=== PATIENT | female | born 1945 | race African-American/Black ===

== ENCOUNTER 2019-08-30 08:56 | Inpatient (IN) | payer MEDICARE, OTHER ==
[~2019-08-30] VITALS: Ht 162.6 cm; Wt 81.9 kg
[2019-08-30 09:09] VITALS: BP 140/82
--- NOTE | 2019-08-30 09:09 | NUR ---
ED Nurse Note: Pt from [facility] and brought in by ambulance due to fever and generalized weakness. Initial temp was 101.5 F and nursing staff gave 650 mg tylenol this morning. Fever went downt o 98.1 F per EMS. Pt is AAO x4, non ambulatroy with non labored breathing. Skin is very dry, intact and warm. No coughing upon arrival.
[2019-08-30] MEDS ORDERED: Acetaminophen 500mg (ES) tab ORAL ONE (09:15)
--- NOTE | 2019-08-30 09:23 | Emergency Room Report ---
History of Present Illness General Chief Complaint: Fever Source: Patient, Medical Record Present Illness HPI 74-year-old female history of dementia, stroke, presents with fever/chills x1 day patient with a positive COVID swab checked yesterday, patient denies any chest pain or shortness of breath she does endorse a cough, history is limited due to her dementia and confusion, no known aggravating or alleviating factor severity is moderate, constant patient presents for evaluation and treatment Allergies: Coded Allergies: DIPHENHYDRAMINE (Verified Allergy, Unknown, 08/30/19) COVID-19 Screening Contact w/high risk pt: Yes Experienced COVID-19 symptoms?: Yes COVID-19 Testing 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 COVID-19 Screening: Positive COVID-19 COVID-19 Testing Source: Unknown Patient History Past Medical History: see triage record Reviewed Nursing Documentation: PMH: Agreed; PSxH: Agreed Review of Systems All Other Systems: limited - Patient with dementia Physical Exam Vital Signs Date Time Temp Pulse Resp B/P (MAP) Pulse Ox O2 Delivery O2 Flow Rate FiO2 08/30/19 08:59 98.1 88 16 140/82 (101) 98 Room Air Sp02 EP Interpretation: reviewed, normal General Appearance: well appearing, no apparent distress, alert Head: normocephalic, atraumatic Eyes: bilateral eye PERRL, bilateral eye EOMI ENT: uvula midline, moist mucus membranes Neck: supple, thyroid normal, supple/symm/no masses Respiratory: lungs clear, no respiratory distress, no retraction, no accessory muscle use Cardiovascular #1: normal peripheral pulses, regular rate, rhythm, no edema, no gallop, no murmur Gastrointestinal: non tender, soft, no guarding, no rebound Musculoskeletal: normal inspection Neurologic: alert, responsive Psychiatric: mood/affect normal Skin: no rash, warm/dry Medical Decision Making Diagnostic Impression: Primary Impression: COVID-19 ER Course 74-year-old female presents with cough, positive COVID swab, patient will need to be isolated, patient will be admitted to isolate her from the other senior living patients Plan for admission and treatment supportive care Patient given fluids, Decadron for inflammation control Chest x-ray shows no obvious opacities, patient admitted to Dr. Jesus Boogie Laboratory Tests Test 08/30/19 09:30 White Blood Count 7.4 K/UL (4.8-10.8) Red Blood Count 5.25 M/UL (4.20-5.40) Hemoglobin 14.9 G/DL (12.0-16.0) Hematocrit 46.6 % (37.0-47.0) Mean Corpuscular Volume 89 FL (80-99) Mean Corpuscular Hemoglobin 28.5 PG (27.0-31.0) Mean Corpuscular Hemoglobin Concent 32.1 G/DL (32.0-36.0) Red Cell Distribution Width 13.8 % (11.6-14.8) Platelet Count 248 K/UL (150-450) Mean Platelet Volume 7.4 FL (6.5-10.1) Neutrophils (%) (Auto) 49.0 % (45.0-75.0) Lymphocytes (%) (Auto) 43.5 % (20.0-45.0) Monocytes (%) (Auto) 4.3 % (1.0-10.0) Eosinophils (%) (Auto) 1.9 % (0.0-3.0) Basophils (%) (Auto) 1.3 % (0.0-2.0) Urine Color Pale yellow Urine Appearance Clear Urine pH 7 (4.5-8.0) Urine Specific [place] 1.005 (1.005-1.035) Urine Protein Negative (NEGATIVE) Urine Glucose (UA) Negative (NEGATIVE) Urine Ketones Negative (NEGATIVE) Urine Blood 2+ (NEGATIVE) H Urine Nitrite Negative (NEGATIVE) Urine Bilirubin Negative (NEGATIVE) Urine Urobilinogen Normal MG/DL (0.0-1.0) Urine Leukocyte Esterase 1+ (NEGATIVE) H Urine RBC 2-4 /HPF (0 - 2) H Urine WBC 0-2 /HPF (0 - 2) Urine Squamous Epithelial Cells Few /LPF (NONE/OCC) Urine Bacteria Occasional /HPF (NONE) Sodium Level 142 MMOL/L (136-145) Potassium Level 4.2 MMOL/L (3.5-5.1) Chloride Level 106 MMOL/L (98-107) Carbon Dioxide Level 28 MMOL/L (21-32) Anion Gap 8 mmol/L (5-15) Blood Urea Nitrogen 13 mg/dL (7-18) Creatinine 0.9 MG/DL (0.55-1.30) Estimated Glomerular Filtration Rate > 60 mL/min (>60) Glucose Level 121 MG/DL (74-106) H Lactic Acid Level 1.80 mmol/L (0.4-2.0) Calcium Level 10.2 MG/DL (8.5-10.1) H Phosphorus Level 3.0 MG/DL (2.5-4.9) Magnesium Level 2.0 MG/DL (1.8-2.4) Total Bilirubin 0.4 MG/DL (0.2-1.0) Aspartate Amino Transferase (AST) 16 U/L (15-37) Alanine Aminotransferase (ALT) 23 U/L (12-78) Alkaline Phosphatase 58 U/L (46-116) Total Creatine Kinase 48 U/L (26-308) Creatine Kinase MB 0.6 NG/ML (0.0-3.6) Creatine Kinase MB Relative Index 1.2 Troponin I 0.000 ng/mL (0.000-0.056) Pro-B-Type Natriuretic Peptide 25 pg/mL (0-125) Total Protein 7.9 G/DL (6.4-8.2) Albumin 3.7 G/DL (3.4-5.0) Globulin 4.2 g/dL Albumin/Globulin Ratio 0.9 (1.0-2.7) L Lipase 152 U/L (73-393) EKG Diagnostic Results EKG Time: 09:24 EP Interpretation: NSR, rate 88, QTc 442, no acute ST elevations, left axis deviation Rhythm Strip Diag. Results Rhythm Strip Time: 10:06 EP Interpretation: yes Rate: 78 Rhythm: NSR, no PVC's, no ectopy Chest X-Ray Diagnostic Results Chest X-Ray Diagnostic Results : Chest X-Ray Ordered: Yes # of Views/Limited/Complete: 1 View Indication: Chest Pain EP Interpretation: Yes Interpretation: no consolidation, no effusion, no pneumothorax, no acute cardiopulmonary disease Impression: No acute disease Electronically Signed by: Ramón Saldaña MD Last Vital Signs Date Time Temp Pulse Resp B/P (MAP) Pulse Ox O2 Delivery O2 Flow Rate FiO2 08/30/19 08:59 98.1 88 16 140/82 (101) 98 Room Air Disposition: ADMITTED INPATIENT Condition: Stable Ramón Saldaña MD Aug 30, 2019 09:23
[2019-08-30] MEDS ORDERED: HUMULIN R100 UNIT/1 SUBQ (09:34)
[2019-08-30] MEDS ORDERED: BISACODYL5 MG RECTAL (09:34)
[2019-08-30] MEDS ORDERED: LEVEMIR100 UNIT/1 SUBQ (09:34)
[2019-08-30] MEDS ORDERED: NORVASC10 MG ORAL (09:34)
[2019-08-30] MEDS ORDERED: MILK OF MA400 MG/51 ORAL (09:34)
[2019-08-30] MEDS ORDERED: NORCO 5-325 TA1 EAC1 ORAL (09:34)
[2019-08-30] MEDS ORDERED: SENNA8.6 M2 PO (09:34)
[2019-08-30] MEDS ORDERED: FLEET ENEMA133 ML RECTAL (09:34)
[2019-08-30] MEDS ORDERED: MULTIVITAMINS1 EAC8 ORAL (09:34)
[2019-08-30] MEDS ORDERED: MOBIC7.5 MG ORAL (09:34)
[2019-08-30] MEDS ORDERED: ZYPREXA5 MG ORAL (09:34)
[2019-08-30] MEDS ORDERED: COLACE100 MG ORAL (09:34)
[2019-08-30] MEDS ORDERED: DEPAKOTE ER250 MG ORAL (09:34)
[2019-08-30] MEDS ORDERED: NEURONTIN100 MG ORAL (09:34)
[2019-08-30] MEDS ORDERED: PAIN RELIEF325 MG PO (09:34)
[2019-08-30] MEDS ORDERED: CEPACOL SORETH1 EACH ORAL (09:34)
--- NOTE | 2019-08-30 09:57 | NUR ---
ED Nurse Note: Collected blood and urine, MRA and VRE/CRE specimen sent.
[2019-08-30 10:06] LABS: APPEARANCE,URINE CLEAR; BILIRUBIN, URINE NEGATIVE (NEGATIVE); COLOR,URINE PALE YELLOW; GLUCOSE, URINE (UA) NEGATIVE (NEGATIVE); KETONES,URINE NEGATIVE (NEGATIVE); LEUKOCYTE ESTERASE ,URINE 1+ (NEGATIVE); NITRITE,URINE NEGATIVE (NEGATIVE); PH,URINE 7 (4.5-8.0); PROTEIN,URINE NEGATIVE (NEGATIVE); UROBILINOGEN,URINE NORMAL MG/DL (0.0-1.0)
[2019-08-30 10:07] LABS: BASOPHILS % (AUTO) 1.3 % (0.0-2.0); EOSINOPHILS % (AUTO) 1.9 % (0.0-3.0); HEMATOCRIT 46.6 % (37.0-47.0); HEMOGLOBIN 14.9 G/DL (12.0-16.0); LYMPHOCYTES % (AUTO) 43.5 % (20.0-45.0); MEAN CORPUSCULAR VOLUME 89 FL (80-99); MONOCYTES % (AUTO) 4.3 % (1.0-10.0); PLATELET COUNT 248 K/UL (150-450); RED BLOOD COUNT 5.25 M/UL (4.20-5.40); RED CELL DISTRIBUTION WIDTH 13.8 % (11.6-14.8); WHITE BLOOD COUNT 7.4 K/UL (4.8-10.8)
[2019-08-30 10:26] LABS: ANION GAP 8 mmol/L (5-15); BLOOD UREA NITROGEN 13 mg/dL (7-18); CALCIUM 10.2 MG/DL (8.5-10.1); CARBON DIOXIDE 28 MMOL/L (21-32); CHLORIDE 106 MMOL/L (98-107); CREATININE 0.9 MG/DL (0.55-1.30); POTASSIUM 4.2 MMOL/L (3.5-5.1); SODIUM 142 MMOL/L (136-145)
[2019-08-30 10:31] LABS: ALANINE AMINOTRANSFERASE 23 U/L (12-78); ALBUMIN 3.7 G/DL (3.4-5.0); ALBUMIN/GLOBULIN RATIO 0.9 (1.0-2.7); ALKALINE PHOSPHATASE 58 U/L (46-116); ASPARTATE AMINO TRANSFERASE 16 U/L (15-37); BILIRUBIN,TOTAL 0.4 MG/DL (0.2-1.0); CKMB 0.6 NG/ML (0.0-3.6); CREATINE KINASE 48 U/L (26-308)
[2019-08-30 11:17] VITALS: BP 102/59
--- NOTE | 2019-08-30 11:43 | NUR ---
ED Nurse Note: Reporty given to Tiago NUNEZ of Med Surg unit.
[2019-08-30 11:53] VITALS: BP 102/56
--- NOTE | 2019-08-30 12:15 | NUR ---
ED Nurse Note: Pt transported to med surg unit and trasnport 19 called. Pt has cover sheets and mask.Pt stable for transport.
--- NOTE | 2019-08-30 12:20 | NUR ---
NURSE NOTES: Admitted patient from ED. Patient is covid-19 positive from [facility]. pt is alert and awake. A&O 2-3, slightly confused, provided reality orientation. pt is verbally responsive. Respiration is even and unlabored on room air. pt denies any pain. Patient has no belongings at this time. Patient came with no home medications. Skin is clear and intact. pt has left sided weakness due to history of CVA. pt is a fall risk, bed alarm on, bed locked for fall precaution. pt has a history of seizures, side-rails padded. made pt comfortable in bed. meal ordered, placed call light within reach, will follow plan of care.
--- NOTE | 2019-08-30 12:25 | NUR ---
NURSE NOTES: Called Dr. Keagan MD said to call Dr. Shaffer for admission orders. Call placed to Dr. Shaffer, admission orders received, noted and carried out.
--- NOTE | 2019-08-30 12:37 | Diagnostic Imaging Report ---
Indication: Cough Technique: One view of the chest Comparison: none Findings: Lungs and pleural spaces are clear. Heart size is normal. Impression: No acute process
[2019-08-30] MEDS ORDERED: LORazepam 1mg tab ORAL PRN (14:00)
--- NOTE | 2019-08-30 15:30 | Consultation ---
DATE OF CONSULTATION: 08/30/2019 PULMONARY CONSULTATION CONSULTING PHYSICIAN: Markus Shaffer MD. HISTORY OF PRESENT ILLNESS: This is a 74-year-old female who was admitted to the hospital with positive COVID-19 swab. The patient presents with fever and chills. She has a history of CVA and dementia. The patient has just been tested and found to be positive for COVID-19. PAST MEDICAL HISTORY: Dementia and previous CVA. HOME MEDICATIONS: Reviewed and reconciled in the chart. PAST SURGICAL HISTORY: Surgeries none reported. REVIEW OF SYSTEMS: Unreliable. PHYSICAL EXAMINATION: GENERAL: Reveals an elderly female. VITAL SIGNS: O2 saturation is 98% on room air, blood pressure 140/80, heart rate 84, and respirations 18. She is afebrile. HEENT: Unremarkable. LUNGS: Decreased breath sounds bilaterally. CARDIOVASCULAR: Normal heart sounds. ABDOMEN: Soft. EXTREMITIES: There is no edema. LABORATORY DATA: Lab testing shows normal CBC and BMP with the lactic acid 1.8. Glucose 121. Urinalysis shows few pus cells. IMAGING STUDIES: Per report showed clear lung kelly bilaterally. IMPRESSION: 1. COVID-19 pneumonia. 2. Dementia. DISCUSSION: Admit to the hospital. Defer to ID regarding use of steroids. Currently, I do not suspect she needs remdesivir or Decadron. We will follow as needed. We will order oxygen and pulmonary hygiene. Markus Shaffer M.D. DR: SERA JOB#: [id number] CC:
--- NOTE | 2019-08-30 15:45 | History and Physical Report ---
DATE OF ADMISSION: 08/30/2019 TIME SEEN: 12 noon. CONSULTANTS: 1. Markus Shaffer MD. 2. Jovon Martin MD. 3. Matias Renee MD. CHIEF COMPLAINT: Fever, weakness, COVID infection. BRIEF HISTORY: This is a 74-year-old female from [facility], presented with fever for several days, came to [place], diagnosed with COVID infection, weakness, and fever. Admitted to medical floor for further treatment. Currently, calm in bed, in the ER [facility] awaiting admission. No complaint. REVIEW OF SYSTEMS: Not available. PAST MEDICAL HISTORY: Diabetes, polyneuropathy, encephalopathy, osteoarthritis, seizure, hemiplegia. PAST SURGICAL HISTORY: Unknown. MEDICATIONS: Include Tylenol, Decadron, sulfa. ALLERGIES: Diphenhydramine. SOCIAL HISTORY: Patient is slightly confused. Unable to obtain. OBJECTIVE: GENERAL: Sleeping in bed, not really responding to questions. Calm in bed. VITAL SIGNS: Temperature 98 degrees, pulse 78, respirations 15, blood pressure 102/56. HEENT: Normocephalic and atraumatic. NECK: Trachea midline. CARDIOVASCULAR: No peripheral edema. LUNGS: Breathing comfortably on room air. ABDOMEN: No apparent wounds. EXTREMITIES: No cyanosis or clubbing. NEUROLOGIC: Patient moves all extremities. LABORATORY DATA: Labs at this time show CBC is normal. BMP shows glucose 121, calcium 10.2. Troponin 0.00. Urinalysis shows 2+ blood, 1+ leukocyte esterase. ASSESSMENT: Fever, COVID infection, UTI, weakness, diabetes, polyneuropathy, encephalopathy, osteoarthritis, seizure, . PLAN: 1. O2, pulmonary treatment as needed. 2. Antibiotics per Infectious Disease. 3. Blood pressure, blood sugar, pain control. 4. Dietary followup. 5. PT, OT, dietary evaluation. 6. CBC, BMP in the morning. 7. Resume home medications. Jesus Boogie D.O. DR: KAREN JOB#: [id number] CC:
[2019-08-30 16:00] VITALS: BP 123/79
[2019-08-30] MEDS: NovoLOG Insulin Flexpen SUBQ SCH ×2 (16:30→21:10)
--- NOTE | 2019-08-30 18:00 | Consultation ---
DATE OF CONSULTATION: 08/30/2019 INFECTIOUS DISEASES CONSULTATION REFERRING PHYSICIAN: Jesus Boogie D.O. REASON FOR CONSULTATION: To rule out COVID-19 pneumonia. HISTORY OF PRESENTING ILLNESS: This is a 74-year-old lady with history of hypertension, diabetes, seizures, hemiplegia, who comes in with COVID-19 infection, fever, and infectious disease consultation has been obtained for antibiotics. PAST MEDICAL HISTORY: 1. Diabetes. 2. Hypertension. 3. Seizures. 4. Hemiplegia. 5. Polyneuropathy. 6. Osteoarthritis. MEDICATIONS: As an inpatient, she is on divalproex, subcu heparin, insulin, clonazepam, lorazepam. She received one dose of dexamethasone. ALLERGIES: TO BENADRYL NOTED. SOCIAL HISTORY: She used to smoke before. She does not smoke anymore. She used to drink before. She does not drink anymore. No history of drug use. FAMILY HISTORY: Noncontributory. REVIEW OF SYSTEMS: RESPIRATORY: She has fevers. No cough. No shortness of breath or chest pain. CARDIAC: No chest pain. No palpitation. No dizziness. No syncope. GASTROINTESTINAL: No nausea. No vomiting. No abdominal pain or diarrhea. PHYSICAL EXAMINATION: VITAL SIGNS: Temperature of 98.8, T-max of 98.8, pulse is 78, respiratory rate of 15, blood pressure of 102/56, O2 sat of 97% on room air. Examination deferred due to COVID-19. LABORATORY AND DIAGNOSTIC DATA: White count 7.4, hemoglobin 13.9, hematocrit 42.6, MCV 99, platelet count of 248. Sodium 142, potassium 4.2, chloride 106, bicarb 28, BUN 13, creatinine 0.9, glucose 121, calcium 8.2. Total bilirubin 0.4, AST 16, ALT 23, alkaline phosphatase 58, PT of 48, 0.6. Troponin 0.00. Beta-natriuretic peptide 25. Total protein 7.9, albumin 3.7. Lipase of 152. UA showing 0-2 white cells. Chest x-ray showed no acute process. ASSESSMENT: This is a 74-year-old lady with history of diabetes, hypertension, seizures, who comes in with fevers and is found to have: 1. Positive COVID-19 test. No sign of pneumonia currently. She is on room air with O2 saturation of 99%. 2. Diabetes. 3. Hypertension. 4. Seizures. PLAN: 1. Continue off antibiotics. 2. She did receive Decadron x1. 3. Continue isolation. 4. We will follow up the patient clinically. I would like to thank Dr. Jesus Boogie for this consultation. Jovon Martin M.D. DR: BOOGIE JOB#: [id number] CC: Jesus Boogie D.O.
--- NOTE | 2019-08-30 19:24 | NUR ---
HAND-OFF: Report given to Moshe.
--- NOTE | 2019-08-30 19:35 | NUR ---
NURSE NOTES: Received report from Tiago NUNEZ. The patient is alert and oriented x4 with some level of agitations and delusions also noted but she was re-oriented on his room and why she isin the hospital. She is room air with respiration even and unlabored and does not appear to be in any acute distress at this time. She has a RFA saline log that is patent and asymptomatic. Bed in low position, Bedsiderails padded and upx2, call light within easy reach and bedalarm . will continue to monitor progress
[2019-08-30 20:00] VITALS: BP 145/96
--- NOTE | 2019-08-30 20:45 | Consultation ---
DATE OF CONSULTATION: 08/30/2019 HISTORY OF PRESENT ILLNESS: This is a 74-year-old female patient. This patient is very confused and disorganized. She has got no logical thought process. This patient came in because she was apparently COVID positive, so she came into the ER, but she is very confused, disorganized. She has got altered mental status. She has got no logical plan for her own self-care. She came into the ER with a fever. She has got confusion and altered mental status. She because of her fever and her positive COVID testing was admitted to the hospital, but she does have a cough. She has got feelings of helplessness, hopelessness, low energy, poor appetite, loss of interest in activity. She is a very poor historian, so a lot of information had to be obtained through chart review. MEDICAL HISTORY: Significant for shortness of breath, cough, COVID positive. She also has diabetes and hypertension. ALLERGIES: Benadryl. PSYCHOTROPIC MEDICATIONS ON ADMISSION: She is on a psychotropic medication regimen consisting of . SOCIAL HISTORY: The patient lives at a facility. Financially supported by [employer] and Medicare. No known legal problems. FAMILY INTERACTIONS AND RELATIONSHIPS: Poor . FAMILY PSYCHIATRIC HISTORY: Denies. PAIN ASSESSMENT: 04/18 pain. DEVELOPMENTAL PROBLEMS: Denies. POSITIVE STRENGTHS: She is motivated to get better and she has place to live. WEAKNESSES: She is impulsive. Minimal support system. MENTAL STATUS EXAMINATION: This is a 74-year-old female. Appearance is disheveled. Attitude irritable and agitated. Affect guarded and restricted. Intellect poor because she does not know current events and does not know last 4 presidents. Mood depressed and anxious. Motor activity, psychomotor agitation. Attention span is poor because she cannot do serial 7's or spell world backwards. Orientation x2. She is oriented to person and place, not time or situation. Speech is nonsensical. Thought process, disorganized and illogical. Thought content, auditory hallucinations and paranoid delusions. Perception is poor because of perceptual disturbance such as auditory hallucinations and paranoid delusions. Abstract reasoning is poor. She does not understand proverbs and only has concrete thinking. Insight is poor because she does not recognize having psych disorder. Judgment is poor. She does not accept consequences for her actions. Short-term memory, 2 out of 3 recall with poor short-term memory. Long-term memory is poor because she does not remember long-term events in her life such as the high school that she went to. DIAGNOSES: 1. Major depressive disorder, severe, recurrent with psychotic features, rule out dementia with psychosis. 2. No secondary. 3. Medical, hypertension, diabetes, COVID-19. 4. Psychosocial stressors, financial. 5. Function impairment, severe. PLAN: Treat this patient with a medication regimen of Zyprexa 5 mg twice a day for psychosis, Depakote 250 mg twice a day as a mood stabilizer, Ativan 1 mg every 6 hours p.r.n. anxiety. 20 minutes of insight-oriented psychotherapy was provided to help motivate the patient to help her understand her psychiatric illness so that she has less depression, anxiety, and that she has more impulse control, and understand one of her physical problems. Chart reviewed. Discussed with staff. Thank you Dr. Jesus Boogie for this interesting consultation. Matias Renee M.D. DR: JAX JOB#: [id number] CC:
[2019-08-30] MEDS: Heparin 5000 units/ml inj SUBQ SCH (21:01)
[2019-08-30] MEDS: Levemir Flexpen SUBQ SCH (21:09)
[2019-08-31] VITALS: BP 131/101
[2019-08-31 04:00] VITALS: BP 135/86
--- NOTE | 2019-08-31 04:02 | NUR ---
NURSE NOTES: The patient exhibits continuous anxiety and inability to relaxed and was given her PRN Ativan as indicated well tolerated. She slept about 3 hrs the entire night with Resp even and unlabored with no coughing or fever noted. Will continue to Monitor.
[2019-08-31] MEDS: NovoLOG Insulin Flexpen SUBQ SCH ×4 (06:27→21:00)
[2019-08-31 06:31] LABS: ANION GAP 15 mmol/L (5-15); BLOOD UREA NITROGEN 16 mg/dL (7-18); CALCIUM 10.4 MG/DL (8.5-10.1); CARBON DIOXIDE 21 MMOL/L (21-32); CHLORIDE 103 MMOL/L (98-107); CREATININE 0.9 MG/DL (0.55-1.30); POTASSIUM 4.7 MMOL/L (3.5-5.1); SODIUM 138 MMOL/L (136-145)
--- NOTE | 2019-08-31 07:17 | NUR ---
HAND-OFF: Report given to Carlos NUNEZ.
--- NOTE | 2019-08-31 07:20 | NUR ---
NURSE NOTES: Received patient in bed. Awake A/O x3-4. Forgetful. IV in the Right forearm, site intact. Denies pain at this time. On room air, respirations unlabored. Bed low and locked, side rails up x2.
[2019-08-31 08:00] VITALS: BP 135/83
[2019-08-31] MEDS: Heparin 5000 units/ml inj SUBQ SCH ×2 (08:49→21:00)
[2019-08-31 09:02] LABS: BASOPHILS % (AUTO) 0.7 % (0.0-2.0); HEMATOCRIT 42.5 % (37.0-47.0); HEMOGLOBIN 14.2 G/DL (12.0-16.0); LYMPHOCYTES % (AUTO) 23.5 % (20.0-45.0); MEAN CORPUSCULAR VOLUME 88 FL (80-99); MONOCYTES % (AUTO) 3.7 % (1.0-10.0); NEUTROPHILS % (AUTO) 72.1 % (45.0-75.0); PLATELET COUNT 253 K/UL (150-450); RED BLOOD COUNT 4.82 M/UL (4.20-5.40); RED CELL DISTRIBUTION WIDTH 14.2 % (11.6-14.8); WHITE BLOOD COUNT 14.7 K/UL (4.8-10.8)
--- NOTE | 2019-08-31 10:04 | General Progress Note ---
Assessment/Plan Problem List: (1) UTI (urinary tract infection) ICD Codes: N39.0 - Urinary tract infection, site not specified SNOMED: 99831325 (2) Weak ICD Codes: R53.1 - Weakness SNOMED: 21459097 (3) Diabetes ICD Codes: E11.9 - Type 2 diabetes mellitus without complications SNOMED: 16766849 (4) Seizure ICD Codes: R56.9 - Unspecified convulsions SNOMED: 46940672 (5) Hemiplegia ICD Codes: G81.90 - Hemiplegia, unspecified affecting unspecified side SNOMED: 10045868 (6) Polyneuropathy in other diseases classified elsewhere ICD Codes: G63 - Polyneuropathy in diseases classified elsewhere SNOMED: 886917962 (7) COVID-19 ICD Codes: U07.1 - COVID-19 SNOMED: 539617854 Status: unchanged Assessment/Plan: pt dit abx pain control cbc bmp am Subjective Constitutional: Reports: weakness Allergies: Coded Allergies: DIPHENHYDRAMINE (Verified Allergy, Unknown, 08/30/19) All Systems: reviewed and negative except above Subjective sleepy calm Objective Last 24 Hour Vital Signs Date Time Temp Pulse Resp B/P (MAP) Pulse Ox O2 Delivery O2 Flow Rate FiO2 08/31/19 04:00 98.2 95 21 135/86 (102) 99 08/31/19 00:00 98.1 99 22 131/101 (111) 99 08/30/19 21:00 Room Air 08/30/19 20:00 97.0 108 24 145/96 (112) 100 08/30/19 16:00 98.1 93 18 123/79 (94) 96 08/30/19 13:06 Room Air 08/30/19 12:15 98.8 78 15 102/56 99 Room Air 08/30/19 11:53 98.8 78 15 102/56 99 Room Air 08/30/19 11:17 98.4 66 12 102/59 9 Room Air Intake and Output 08/30/19 08/31/19 19:00 07:00 Intake Total 240 ml 450 ml Output Total 450 ml Balance 240 ml 0 ml Intake Oral 240 ml 450 ml Output Urine Total 450 ml # Voids 1 Laboratory Tests 08/30/19 16:41: POC Whole Blood Glucose [Pending] 08/30/19 21:03: POC Whole Blood Glucose 150H 08/31/19 03:39: POC Whole Blood Glucose 109H 08/31/19 05:00: Sodium Level 138, Potassium Level 4.7, Chloride Level 103, Carbon Dioxide Level 21, Anion Gap 15, Blood Urea Nitrogen 16, Creatinine 0.9, Estimat Glomerular Filtration Rate > 60, Glucose Level 115H, Calcium Level 10.4H 08/31/19 08:50: White Blood Count 14.7#H, Red Blood Count 4.82, Hemoglobin 14.2, Hematocrit 42.5 , Mean Corpuscular Volume 88, Mean Corpuscular Hemoglobin 29.4, Mean Corpuscular Hemoglobin Concent 33.3, Red Cell Distribution Width 14.2, Platelet Count 253, Mean Platelet Volume 7.2, Neutrophils (%) (Auto) 72.1, Lymphocytes (% ) (Auto) 23.5, Monocytes (%) (Auto) 3.7, Eosinophils (%) (Auto) 0.0, Basophils ( %) (Auto) 0.7 Height (Feet): 5 Height (Inches): 4.00 Weight (Pounds): 180 General Appearance: lethargic EENT: normal ENT inspection Neck: normal alignment Cardiovascular: normal rate, regular rhythm Respiratory/Chest: no respiratory distress, no accessory muscle use Extremities: normal inspection Skin: normal pigmentation Jesus Boogie DO Aug 31, 2019 10:04
--- NOTE | 2019-08-31 10:29 | NUR ---
NURSE NOTES: Dr Martin informed of WBC 14.7. No new orders.
--- NOTE | 2019-08-31 11:05 | Infectious Diseases Prog Note ---
Assessment/Plan Assessment/Plan antibiotics : none A 1. r/o COVID 19 pneumonia on room air, O2 saturation 99 percent 2. leucocytosis likely secondary to steroids 3. diabetes mellitus 4. hypertension 5. seizures P 1. continue off antibiotics 2. continue isolation Subjective Constitutional: Denies: fever, chills Respiratory: Denies: shortness of breath, dry cough Gastrointestinal/Abdominal: Denies: nausea, vomiting, diarrhea Musculoskeletal: Reports: pain Allergies: Coded Allergies: DIPHENHYDRAMINE (Verified Allergy, Unknown, 08/30/19) Objective Last 24 Hour Vital Signs Date Time Temp Pulse Resp B/P (MAP) Pulse Ox O2 Delivery O2 Flow Rate FiO2 08/31/19 09:00 Room Air 08/31/19 08:00 97.9 94 20 135/83 (100) 99 08/31/19 04:00 98.2 95 21 135/86 (102) 99 08/31/19 00:00 98.1 99 22 131/101 (111) 99 08/30/19 21:00 Room Air 08/30/19 20:00 97.0 108 24 145/96 (112) 100 08/30/19 16:00 98.1 93 18 123/79 (94) 96 08/30/19 13:06 Room Air 08/30/19 12:15 98.8 78 15 102/56 99 Room Air 08/30/19 11:53 98.8 78 15 102/56 99 Room Air 08/30/19 11:17 98.4 66 12 102/59 9 Room Air Height (Feet): 5 Height (Inches): 4.00 Weight (Pounds): 180 Laboratory Tests Test 08/30/19 16:41 08/30/19 21:03 08/31/19 03:39 08/31/19 05:00 POC Whole Blood Glucose Pending 150 MG/DL (74-106) H 109 MG/DL (74-106) H Sodium Level 138 MMOL/L (136-145) Potassium Level 4.7 MMOL/L (3.5-5.1) Chloride Level 103 MMOL/L (98-107) Carbon Dioxide Level 21 MMOL/L (21-32) Anion Gap 15 mmol/L (5-15) Blood Urea Nitrogen 16 mg/dL (7-18) Creatinine 0.9 MG/DL (0.55-1.30) Estimat Glomerular Filtration Rate > 60 mL/min (>60) Glucose Level 115 MG/DL (74-106) H Calcium Level 10.4 MG/DL (8.5-10.1) H Test 08/31/19 08:50 White Blood Count 14.7 K/UL (4.8-10.8) #H Red Blood Count 4.82 M/UL (4.20-5.40) Hemoglobin 14.2 G/DL (12.0-16.0) Hematocrit 42.5 % (37.0-47.0) Mean Corpuscular Volume 88 FL (80-99) Mean Corpuscular Hemoglobin 29.4 PG (27.0-31.0) Mean Corpuscular Hemoglobin Concent 33.3 G/DL (32.0-36.0) Red Cell Distribution Width 14.2 % (11.6-14.8) Platelet Count 253 K/UL (150-450) Mean Platelet Volume 7.2 FL (6.5-10.1) Neutrophils (%) (Auto) 72.1 % (45.0-75.0) Lymphocytes (%) (Auto) 23.5 % (20.0-45.0) Monocytes (%) (Auto) 3.7 % (1.0-10.0) Eosinophils (%) (Auto) 0.0 % (0.0-3.0) Basophils (%) (Auto) 0.7 % (0.0-2.0) Current Medications Medications (Trade) Dose Ordered Sig/Lizz Route PRN Reason Start Time Stop Time Status Last Admin Dose Admin Dextrose (Dextrose 50%) 25 ml Q30M PRN IV Hypoglycemia 08/30/19 14:00 11/28/19 13:59 Dextrose (Dextrose 50%) 50 ml Q30M PRN IV Hypoglycemia 08/30/19 14:00 11/28/19 13:59 Divalproex Sodium (Depakote) 250 mg EVERY 12 HOURS ORAL 08/30/19 21:00 09/29/19 20:59 08/31/19 08:42 Heparin Sodium (Porcine) (Heparin 5000 units/ml) 5,000 units EVERY 12 HOURS SUBQ 08/30/19 21:00 10/14/19 20:59 08/31/19 08:49 Insulin Aspart (NovoLOG) BEFORE MEALS AND HS SUBQ 08/30/19 16:30 11/28/19 16:29 08/30/19 21:10 Insulin Detemir (Levemir) 25 units BEDTIME SUBQ 08/30/19 21:00 11/28/19 20:59 08/30/19 21:09 Lorazepam (Ativan) 1 mg Q6H PRN ORAL For Anxiety 08/30/19 14:00 09/06/19 13:59 08/30/19 20:54 Olanzapine (ZyPREXA) 5 mg BID ORAL 08/30/19 18:00 10/14/19 17:59 08/31/19 08:42 Jovon Martin MD Aug 31, 2019 11:05
--- NOTE | 2019-08-31 11:11 | NUR ---
P.T Note: P.T evaluation completed and tx initiated. Please refer to P.T evaluation for current functional status.
--- NOTE | 2019-08-31 11:32 | NUR ---
P.T Note: P.T evaluation completed and tx initiated. Please refer to P.T evaluation for current functional status. Addendum: 08/31/19 at 1135 by ROCKY NDIAYE PT Amended: Links added.
--- NOTE | 2019-08-31 13:12 | NUR ---
RD ASSESSMENT & RECOMMENDATIONS SEE CARE ACTIVITY FOR COMPLETE ASSESSMENT DAILY ESTIMATED NEEDS: Needs based on Pulmonary, DM, obese 61.4kg 25-30 kcals/kg 7935-0193 total kcals 1-1.5 g protein/kg 61-92 g total protein 25-30 mL/kg 3929-7190 total fluid mLs NUTRITION DIAGNOSIS: Swallowing difficulty r/t dysphagia as evidenced by pt on ms chopped diet, variable po intake, h/o CVA. CURRENT DIET: CCHO MED/ NA ms chopped PO DIET RECOMMENDATIONS: CCHO MED / liberalized / EUGENE diet, texture per FACILITIES COORDINATOR ADDITIONAL RECOMMENDATIONS: 1) With <75% intake, add Glucerna BID to meals 2) Obtain a accurate CBW, recalibrate bed scale 3) Hold ativan at meal times. 4) Check lytes, replete as needed
--- NOTE | 2019-08-31 15:04 | NUR ---
*-*DISCHARGE PLANNING*- PATIENT HAS BEEN REFERRED TO: [facility] P: [phone]
--- NOTE | 2019-08-31 15:14 | NUR ---
Discharge planning: Patient does not meet criteria for interqual admission at this time CM ask primary for discharge Insurance wanting to transfer into network
--- NOTE | 2019-08-31 15:30 | Progress Note ---
DATE: 08/31/2019 SUBJECTIVE: This is a 74-year-old female patient. She has some confusion, some disorganized thought process, and some decline in cognition below her baseline. She is in the hospital with COVID-19 infection, but she does have confusion, some altered mental status, and disorganized thought process, decline in cognition below her baseline. That is why, her attending has requested daily psychiatric consultation at this time. MENTAL STATUS EXAMINATION: This is a 74-year-old female patient. Her appearance is disheveled. Attitude, irritable and agitated. Affect, guarded and restricted. Intellect, poor. Mood, depressed and anxious. Motor activity, psychomotor agitation. Attention span is poor. Orientation x2. Speech is low volume, slurred. Thought process, disorganized and illogical. Thought content, auditory hallucinations and paranoid delusions. Insight and judgment is poor. DIAGNOSIS: Paranoid schizophrenia, acute exacerbation. PLAN: We will continue treatment with medications to help stabilize her mood and prevent further decline in cognition. The patient will continue to be followed throughout hospital course. Twenty minutes of cognitive behavioral therapy will help identify her automatic negative thoughts and help her convert those negative thoughts to more positive thoughts to reduce depression, anxiety, and mood lability. Chart reviewed. Discussed with staff. Seen and assessed in her room. Matias Renee M.D. DR: TYLER JOB#: [id number] CC:
--- NOTE | 2019-08-31 16:15 | NUR ---
CASE MANAGEMENT:REVIEW 74 YR OLD FEMALE BIBA FROM [facility] CC;FEVER SI;COVID-19 98.8 88 20 140/82 98% ON RA CA 10.2 CXR ~ NO ACUTE PROCESS UA+ PROTEIN, LEUKOCYTE ESTERASE, RBC IS;ACETAMINOPHEN PO ONCE DECADRON PO ONCE ADMITTED TO MED SURG MED SURG STATUS DCP;FROM [facility]
[2019-08-31 16:20] VITALS: BP 102/64
--- NOTE | 2019-08-31 16:39 | NUR ---
*-*DISCHARGER PLANNED*-* PATIENT HAS BEEN ACCEPTED AND WILL BE DIS[facility]GED TO[facility] P: [phone] FOR NURSE TO NURSE REPORT ROOM# 106.[facility] TRANSPORTATION SET FOR 6:30PM ANTONIO [id number] PLACED A CALL TO PATIENTS DAUGHTER PEDRO FLORES, NO ANSWER, LEFT VOICE MESSAGE IN RE-GUARDS TO DISCHARGE PLAN.
--- NOTE | 2019-08-31 17:45 | NUR ---
NURSE NOTES: Dr. Boogie contacted for discharge meds. Doctor did not give d/c order and states he will see patient tomorrow morning to see if stable for d/c. Doctor asked if he wants to cancel discharge. Awaiting response.
--- NOTE | 2019-08-31 18:00 | NUR ---
NURSE NOTES: Dr. Boogie office called for discharge order update. Message left. CN aware.
--- NOTE | 2019-08-31 18:12 | NUR ---
NURSE NOTES: Report given to Jan NUNEZ from [facility].
--- NOTE | 2019-08-31 18:13 | NUR ---
NURSE NOTES: Contact on file (Gabino Zepeda) called to notify of transfer. No answer, left message.
--- NOTE | 2019-08-31 18:34 | Pulmonology Progress Note ---
Subjective Interval Events: None new HEENT: Repors: no symptoms Respiratory: Reports: no symptoms Cardiovascular: Reports: no symptoms Gastrointestinal/Abdominal: Reports: no symptoms Musculoskeletal: Reports: pain Allergies: Coded Allergies: DIPHENHYDRAMINE (Verified Allergy, Unknown, 08/30/19) All Systems: reviewed and negative except above Objective Last 24 Hour Vital Signs Date Time Temp Pulse Resp B/P (MAP) Pulse Ox O2 Delivery O2 Flow Rate FiO2 08/31/19 16:20 98.4 94 20 102/64 (77) 99 08/31/19 09:00 Room Air 08/31/19 08:00 97.9 94 20 135/83 (100) 99 08/31/19 04:00 98.2 95 21 135/86 (102) 99 08/31/19 00:00 98.1 99 22 131/101 (111) 99 08/30/19 21:00 Room Air 08/30/19 20:00 97.0 108 24 145/96 (112) 100 Intake and Output 08/30/19 08/31/19 19:00 07:00 Intake Total 240 ml 450 ml Output Total 450 ml Balance 240 ml 0 ml Intake Oral 240 ml 450 ml Output Urine Total 450 ml # Voids 1 General Appearance: no acute distress HEENT: normocephalic Respiratory: chest wall non-tender, lungs clear Cardiovascular: normal peripheral pulses Abdomen: normal bowel sounds Laboratory Tests 08/30/19 21:03: POC Whole Blood Glucose 150H 08/31/19 03:39: POC Whole Blood Glucose 109H 08/31/19 05:00: Sodium Level 138, Potassium Level 4.7, Chloride Level 103, Carbon Dioxide Level 21, Anion Gap 15, Blood Urea Nitrogen 16, Creatinine 0.9, Estimat Glomerular Filtration Rate > 60, Glucose Level 115H, Calcium Level 10.4H 08/31/19 08:50: White Blood Count 14.7#H, Red Blood Count 4.82, Hemoglobin 14.2, Hematocrit 42.5 , Mean Corpuscular Volume 88, Mean Corpuscular Hemoglobin 29.4, Mean Corpuscular Hemoglobin Concent 33.3, Red Cell Distribution Width 14.2, Platelet Count 253, Mean Platelet Volume 7.2, Neutrophils (%) (Auto) 72.1, Lymphocytes (% ) (Auto) 23.5, Monocytes (%) (Auto) 3.7, Eosinophils (%) (Auto) 0.0, Basophils ( %) (Auto) 0.7 08/31/19 11:52: POC Whole Blood Glucose 102 Current Medications Medications (Trade) Dose Ordered Sig/Lizz Route PRN Reason Start Time Stop Time Status Last Admin Dose Admin Dextrose (Dextrose 50%) 25 ml Q30M PRN IV Hypoglycemia 08/30/19 14:00 11/28/19 13:59 Dextrose (Dextrose 50%) 50 ml Q30M PRN IV Hypoglycemia 08/30/19 14:00 11/28/19 13:59 Divalproex Sodium (Depakote) 250 mg EVERY 12 HOURS ORAL 08/30/19 21:00 09/29/19 20:59 08/31/19 08:42 Heparin Sodium (Porcine) (Heparin 5000 units/ml) 5,000 units EVERY 12 HOURS SUBQ 08/30/19 21:00 10/14/19 20:59 08/31/19 08:49 Insulin Aspart (NovoLOG) BEFORE MEALS AND HS SUBQ 08/30/19 16:30 11/28/19 16:29 08/30/19 21:10 Insulin Detemir (Levemir) 25 units BEDTIME SUBQ 08/30/19 21:00 11/28/19 20:59 08/30/19 21:09 Lorazepam (Ativan) 1 mg Q6H PRN ORAL For Anxiety 08/30/19 14:00 09/06/19 13:59 08/30/19 20:54 Olanzapine (ZyPREXA) 5 mg BID ORAL 08/30/19 18:00 10/14/19 17:59 08/31/19 18:33 Assessment/Plan Assessment/Plan IMPRESSION: 1. COVID-19 pneumonia. 2. Dementia. DISCUSSION: Admit to the hospital. Defer to ID regarding use of steroids. Currently, I do not suspect she needs remdesivir or Decadron. I will follow as needed. I will order oxygen prn and pulmonary hygiene. Shanna Martin Omar Syed MD Aug 31, 2019 18:34
--- NOTE | 2019-08-31 18:40 | NUR ---
NURSE NOTES: Dr Boogie office called regarding discharge order. Message left with statistical secretary.
--- NOTE | 2019-08-31 19:02 | NUR ---
NURSE NOTES: Dr. Shaffer office contacted regarding d/c order. Message left.
--- NOTE | 2019-08-31 19:09 | NUR ---
NURSE NOTES: Dr. Shaffer gave order to cancel discharge for today. Order carried out.
--- NOTE | 2019-08-31 19:25 | NUR ---
NURSE NOTES: RECEIVED PATIENT FROM ENRIQUE FROST. PATIENT IS AWAKE, ALERT, AAOX4, ON ROOM AIR, NO ACUTE DISTRESS NOTED. PIV ON RIGHT FA INTACT AND PATENT. SKIN IS INTACT. BED IS LOCKED AND LOW, BED ALARMS ACTVE, SIDE RAILS UP X2 AND PADDED, CALL LIGHT IS WITHIN REACH. WILL CONTINUE TO MONITOR.
--- NOTE | 2019-08-31 19:42 | NUR ---
HAND-OFF: Report given to Mila RN.
[2019-08-31 20:00] VITALS: BP 120/61
[2019-08-31] MEDS: Levemir Flexpen SUBQ SCH (21:00)
[2019-09-01] VITALS: BP 121/75
[2019-09-01 04:00] VITALS: BP 127/67
[2019-09-01] MEDS: NovoLOG Insulin Flexpen SUBQ SCH (05:59)
--- NOTE | 2019-09-01 07:34 | NUR ---
HAND-OFF: Report given to ENRIQUE Whipple. Patient is in stable condition. Endorsed POC.
--- NOTE | 2019-09-01 07:46 | NUR ---
NURSE NOTES: Received report from Mila, RN. Pt sleeping comfortably in bed. No s/s of acute distress. Currently on room air. SL on right FA, patent and intact. Pt refused labs this morning. Bed in low position, side rails up x3 and call light within reach. Will continue to monitor.
[2019-09-01 08:00] VITALS: BP 131/69
--- NOTE | 2019-09-01 08:03 | General Progress Note ---
Assessment/Plan Problem List: (1) UTI (urinary tract infection) ICD Codes: N39.0 - Urinary tract infection, site not specified SNOMED: 67842369 (2) Weak ICD Codes: R53.1 - Weakness SNOMED: 34707523 (3) Diabetes ICD Codes: E11.9 - Type 2 diabetes mellitus without complications SNOMED: 94732873 (4) Seizure ICD Codes: R56.9 - Unspecified convulsions SNOMED: 74047459 (5) Hemiplegia ICD Codes: G81.90 - Hemiplegia, unspecified affecting unspecified side SNOMED: 52023424 (6) Polyneuropathy in other diseases classified elsewhere ICD Codes: G63 - Polyneuropathy in diseases classified elsewhere SNOMED: 483752813 (7) COVID-19 ICD Codes: U07.1 - COVID-19 SNOMED: 642854767 Status: unchanged Assessment/Plan: pt dit abx pain control cbc bmp am dc plan Subjective Constitutional: Reports: weakness Allergies: Coded Allergies: DIPHENHYDRAMINE (Verified Allergy, Unknown, 08/30/19) All Systems: reviewed and negative except above Subjective sleepy calm Objective Last 24 Hour Vital Signs Date Time Temp Pulse Resp B/P (MAP) Pulse Ox O2 Delivery O2 Flow Rate FiO2 09/01/19 04:00 97.5 68 18 127/67 (87) 98 09/01/19 00:00 97.5 70 18 121/75 (90) 97 08/31/19 21:00 Room Air 08/31/19 20:00 98.1 95 19 120/61 (80) 97 08/31/19 16:20 98.4 94 20 102/64 (77) 99 08/31/19 09:00 Room Air Intake and Output 08/31/19 09/01/19 19:00 07:00 Intake Total 720 ml Output Total 1500 ml Balance -780 ml Intake Oral 720 ml Output Urine Total 1500 ml # Voids 2 Laboratory Tests 08/31/19 08:50: White Blood Count 14.7#H, Red Blood Count 4.82, Hemoglobin 14.2, Hematocrit 42.5 , Mean Corpuscular Volume 88, Mean Corpuscular Hemoglobin 29.4, Mean Corpuscular Hemoglobin Concent 33.3, Red Cell Distribution Width 14.2, Platelet Count 253, Mean Platelet Volume 7.2, Neutrophils (%) (Auto) 72.1, Lymphocytes (% ) (Auto) 23.5, Monocytes (%) (Auto) 3.7, Eosinophils (%) (Auto) 0.0, Basophils ( %) (Auto) 0.7 08/31/19 11:52: POC Whole Blood Glucose 102 08/31/19 22:17: POC Whole Blood Glucose [Pending] 09/01/19 05:53: POC Whole Blood Glucose 71L Height (Feet): 5 Height (Inches): 4.00 Weight (Pounds): 180 General Appearance: lethargic EENT: normal ENT inspection Neck: normal alignment Cardiovascular: normal rate, regular rhythm Respiratory/Chest: no respiratory distress, no accessory muscle use Extremities: normal inspection Skin: normal pigmentation Jesus Boogie DO Sep 01, 2019 08:03
[2019-09-01] MEDS: Heparin 5000 units/ml inj SUBQ SCH (08:38)
[2019-09-01 09:27] LABS: BASOPHILS % (AUTO) 1.5 % (0.0-2.0); EOSINOPHILS % (AUTO) 0.3 % (0.0-3.0); HEMOGLOBIN 13.9 G/DL (12.0-16.0); LYMPHOCYTES % (AUTO) 34.5 % (20.0-45.0); MEAN CORPUSCULAR VOLUME 87 FL (80-99); MONOCYTES % (AUTO) 5.6 % (1.0-10.0); NEUTROPHILS % (AUTO) 58.1 % (45.0-75.0); PLATELET COUNT 233 K/UL (150-450); RED BLOOD COUNT 4.84 M/UL (4.20-5.40); RED CELL DISTRIBUTION WIDTH 13.4 % (11.6-14.8); WHITE BLOOD COUNT 13.8 K/UL (4.8-10.8)
[2019-09-01 09:40] LABS: ANION GAP 8 mmol/L (5-15); BLOOD UREA NITROGEN 14 mg/dL (7-18); CALCIUM 9.6 MG/DL (8.5-10.1); CARBON DIOXIDE 25 MMOL/L (21-32); CHLORIDE 106 MMOL/L (98-107); CREATININE 0.8 MG/DL (0.55-1.30); SODIUM 139 MMOL/L (136-145)
--- NOTE | 2019-09-01 09:45 | NUR ---
Discharge Barriers:08/31/19 late entry CM notified Dr Boogie and Dr Shaffer patient does not meet criteria for interqual @1428 Dr Shaffer gave CM to discharge if no fever by 4pm CM entered order D/T no fever Patient came from facility covid + Patient to return to sister facility [facility] per Anton Austin D/T covid + Both MD's canceled order to @4pm discharge to transfer to [facility]
--- NOTE | 2019-09-01 10:30 | NUR ---
NURSE NOTES: Called [facility] and gave report to ENRIQUE Desir. Pt will be transferred via ambulance.
--- NOTE | 2019-09-01 10:31 | NUR ---
NURSE NOTES: Dr Boogie asked pt to be cleared by ID doctor. Dr. Martin was in the nurses station and cleared the pt for discharged. She states pt had medication decadron which raises WBC. Informed Dr. Boogie.
--- NOTE | 2019-09-01 11:35 | NUR ---
NURSE NOTES: Pt picked up by [facility] for transfer to [facility]. Pt stable, with no s/s of distress. Removed SL from right FA.
--- NOTE | 2019-09-01 11:41 | Infectious Diseases Prog Note ---
Assessment/Plan Assessment/Plan antibiotics : none A 1. r/o COVID 19 pneumonia on room air, O2 saturation 98 percent 2. leucocytosis likely secondary to steroids 3. diabetes mellitus 4. hypertension 5. seizures P 1. continue off antibiotics 2. continue isolation 3. d.c planned Subjective Constitutional: Denies: fever, chills Respiratory: Denies: shortness of breath, dry cough Gastrointestinal/Abdominal: Denies: nausea, vomiting, diarrhea Musculoskeletal: Reports: pain Allergies: Coded Allergies: DIPHENHYDRAMINE (Verified Allergy, Unknown, 08/30/19) Objective Last 24 Hour Vital Signs Date Time Temp Pulse Resp B/P (MAP) Pulse Ox O2 Delivery O2 Flow Rate FiO2 09/01/19 09:00 Room Air 09/01/19 08:00 97.6 73 18 131/69 (89) 98 09/01/19 04:00 97.5 68 18 127/67 (87) 98 09/01/19 00:00 97.5 70 18 121/75 (90) 97 08/31/19 21:00 Room Air 08/31/19 20:00 98.1 95 19 120/61 (80) 97 08/31/19 16:20 98.4 94 20 102/64 (77) 99 Height (Feet): 5 Height (Inches): 4.00 Weight (Pounds): 180 Microbiology Date/Time Source Procedure Growth Status 08/30/19 09:30 Blood Blood Culture - Preliminary NO GROWTH AFTER 24 HOURS Resulted 08/30/19 09:30 Blood Blood Culture - Preliminary NO GROWTH AFTER 24 HOURS Resulted Laboratory Tests Test 08/31/19 11:52 08/31/19 22:17 09/01/19 05:53 09/01/19 09:15 POC Whole Blood Glucose 102 MG/DL (74-106) Pending 71 MG/DL (74-106) L White Blood Count 13.8 K/UL (4.8-10.8) H Red Blood Count 4.84 M/UL (4.20-5.40) Hemoglobin 13.9 G/DL (12.0-16.0) Hematocrit 42.0 % (37.0-47.0) Mean Corpuscular Volume 87 FL (80-99) Mean Corpuscular Hemoglobin 28.7 PG (27.0-31.0) Mean Corpuscular Hemoglobin Concent 33.0 G/DL (32.0-36.0) Red Cell Distribution Width 13.4 % (11.6-14.8) Platelet Count 233 K/UL (150-450) Mean Platelet Volume 7.6 FL (6.5-10.1) Neutrophils (%) (Auto) 58.1 % (45.0-75.0) Lymphocytes (%) (Auto) 34.5 % (20.0-45.0) Monocytes (%) (Auto) 5.6 % (1.0-10.0) Eosinophils (%) (Auto) 0.3 % (0.0-3.0) Basophils (%) (Auto) 1.5 % (0.0-2.0) Sodium Level 139 MMOL/L (136-145) Potassium Level 4.0 MMOL/L (3.5-5.1) Chloride Level 106 MMOL/L (98-107) Carbon Dioxide Level 25 MMOL/L (21-32) Anion Gap 8 mmol/L (5-15) Blood Urea Nitrogen 14 mg/dL (7-18) Creatinine 0.8 MG/DL (0.55-1.30) Estimat Glomerular Filtration Rate > 60 mL/min (>60) Glucose Level 95 MG/DL (74-106) Calcium Level 9.6 MG/DL (8.5-10.1) Jovon Martin MD Sep 01, 2019 11:41
--- NOTE | 2019-09-01 15:30 | Progress Note ---
DATE: 09/01/2019 SUBJECTIVE: This is a 74-year-old female patient admitted to the hospital due to respiratory insufficiency and she is COVID positive, but she has altered mental status, confusion, decline in cognition below her baseline. MENTAL STATUS EXAMINATION: This is a 74-year-old female. Appearance is disheveled. Attitude, irritable and agitated. Affect, guarded and restricted. Intellect poor. Mood, depressed and anxious. Motor activity, psychomotor agitation. Attention span is poor. Orientation x2. Speech is low volume, slurred. Thought process, disorganized and illogical. Insight and judgment is poor. DIAGNOSIS: Major depressive disorder, severe, recurrent with psychotic features. PLAN: Cephalexin 5 mg twice a day, Depakote 250 twice a day, and Ativan 1 every 6 hours p.r.n. anxiety, agitation. Twenty minutes of cognitive behavioral therapy to help her identify automatic negative thoughts, help her convert negative thoughts to more positive thoughts to reduce depression, anxiety, and mood lability. Chart reviewed. Discussed with staff. Seen and assessed at bedside. Matias Renee M.D. DR: DARLENE JOB#: [id number] CC:
--- NOTE | 2019-09-05 08:39 | Discharge Summary ---
Discharge Summary Discharge Summary _ DATE OF ADMISSION: 08/30/2019 DATE OF DISCHARGE: 09/01/2019 DISCHARGED BY: Dr. Boogie REASON FOR ADMISSION: 74 years old female with past medical history of CVA, dementia, presented with fever and chills for 1 day. Patient was tested positive for COVID 19 at the facility a day prior to admission. Patient denied chest pain or shortness of breath. Patient reported dry cough. History was still significantly limited , given her dementia and confusion. Upon evaluation patient was afebrile ,pulse oximetry was 98% on the room air. Laboratory work-up revealed no leukocytosis ,stable hemoglobin, hematocrit and platelet count. Urinalysis revealed +1 leukocyte esterase, no pyuria. Stable electrolytes. BUN 13, creatinine 0.9. Glucose 121. Lactic acid 1.8. Troponin negative . Stable LFT and lipase. Chest x-ray revealed no acute cardiopulmonary disease. In emergency department patient received IV fluids and Decadron. CONSULTANTS: pulmonary Dr. Shaffer ID specialist Dr. Martin psychiatrist Dr. Renee [facility] COURSE: Patient admitted to isolation room. Oxygenation was closely monitored. Pulse oximetry remained stable on room air. Patient developed leukocytosis, which was likely due to steroids. Blood cultures were negative. Supportive care provided. DVT prophylaxis provided. Blood sugar was managed with long-acting insulin and sliding scale of insulin as needed. Seizure precaution maintained. Depakote continued. Blood pressure remained stable without antihypertensive. Psychiatrist seen and evaluated patient . Psychiatric medication regimen was optimized. Pulse oximetry was closely monitored and remained stable on room air. Patient remained afebrile. Leukocytosis trending down , likely was due to steroids. Patient clinically stabilized and was ready for discharge to longterm facility to isolation for total of 10 days from the onset of symptoms. FINAL DIAGNOSES: COVID-19 infection Diabetes mellitus Hypertension Seizure disorder Major depressive disorder ,severe, recurrent with psychotic features DISCHARGE MEDICATIONS: See Medication Reconciliation list. DISCHARGE INSTRUCTIONS: Patient was discharged to the longterm facility. Follow up with medical doctor at the facility. I have been assigned to dictate discharge summary for this account. I was not involved in the patient's management. Anjana Medrano NP Sep 05, 2019 08:39
== END 2019-09-01 11:37 | DRG 177 ==
LOC: EDBD 08:56 → EMR 09:54 → 4E 10:03 → EDBEDREQ 11:10
DX: U07.1 COVID-19 (principal); J12.89 Other viral pneumonia; N39.0 Urinary tract infection, site not specified; F20.0 Paranoid schizophrenia; G81.90 Hemiplegia, unspecified affecting unspecified side; F33.3 Major depressive disorder, recurrent, severe with psychotic symptoms; E11.22 Type 2 diabetes mellitus with diabetic chronic kidney disease; M19.90 Unspecified osteoarthritis, unspecified site; R56.9 Unspecified convulsions; I12.9 Hypertensive chronic kidney disease with stage 1 through stage 4 chronic kidney disease, or unspecified chronic kidney disease; F03.90 Unspecified dementia, unspecified severity, without behavioral disturbance, psychotic disturbance, mood disturbance, and anxiety; Z88.8 Allergy status to other drugs, medicaments and biological substances; G62.9 Polyneuropathy, unspecified; Z87.891 Personal history of nicotine dependence
CPT/HCPCS: 36415; 71045; 80048; 80053; 81003; 82550; 82553; 82962; 83605; 83690; 83735; 83880; 84100; 84484; 85025; 87040; 93005; 97803; 99285; J1815; S5561